=== PATIENT | male | born 1965 | race Caucasian/White ===

== ENCOUNTER → 2024-03-03 12:45 | Outpatient (REF) | payer OTHER, SELFPAY | LOC: RAD 12:45 | PROVIDERS: ATTENDING PHYSICIAN Physician Assistant | DX: M54.50 Low back pain, unspecified (principal); Z98.1 Arthrodesis status | CPT/HCPCS: 72110 ==

== ENCOUNTER → 2024-06-04 15:18 | Outpatient (REF) | payer OTHER, SELFPAY | LOC: RAD 15:18 | PROVIDERS: ATTENDING PHYSICIAN Physician Assistant | DX: R10.11 Right upper quadrant pain (principal) | CPT/HCPCS: 76700 ==

== ENCOUNTER → 2024-06-04 16:42 | Outpatient (REF) | payer OTHER, SELFPAY | LOC: MRI 16:42 | PROVIDERS: ATTENDING PHYSICIAN Physician Assistant | DX: M54.15 Radiculopathy, thoracolumbar region (principal); Z98.890 Other specified postprocedural states | CPT/HCPCS: 72158; A9575 ==

== ENCOUNTER 2025-09-06 06:32 | Day surgery (SDC) | payer OTHER, SELFPAY | END 2025-09-06 11:57 | disposition home or self-care (01) | LOC: GI 06:32 | PROVIDERS: ATTENDING PHYSICIAN Internal Medicine | DX: Z12.11 Encounter for screening for malignant neoplasm of colon (principal); D12.0 Benign neoplasm of cecum; D12.2 Benign neoplasm of ascending colon; D12.3 Benign neoplasm of transverse colon; D12.4 Benign neoplasm of descending colon; K57.30 Diverticulosis of large intestine without perforation or abscess without bleeding; K64.9 Unspecified hemorrhoids; Z86.0101 Personal history of adenomatous and serrated colon polyps | CPT/HCPCS: 45385; 88305 ==